=== PATIENT | male | born 1990 | race Caucasian/White ===

== ENCOUNTER 2016-07-19 15:45 | Emergency (ER) | payer OTHER ==
[2016-07-19 16:04] VITALS: BP 130/93; PULSE 88; TEMP 98.4; BMI 27.2
--- NOTE | 2016-07-19 16:25 | PDOC ---
History of Present Illness - General History Source: Patient Exam Limitations: No Limitations - History of Present Illness Initial Comments: 07/19/16 16:25 The patient is a 26 year old male , with no significant past medical history, who presents today with a laceration on his forehead. The patient states that the injury occurred last night at approximately 3:00am, 13 hours ago. The patient reports that he was helping a friend move when he accidentally knocked a box off of a high shelf onto his head. He reports using a wet washcloth to stop the bleeding. At this time, there is no active bleeding. The patient is unsure when his last tetanus shot was. No LOC, amnesia, nausea, vomiting. No double vision, blurred vision. No focal neurological complaints. Denies any other trauma. Allergies: Penicillins, cephalosporins. <Lakesha Dickerson - Last Filed: 07/19/16 17:09> <Aracelis Chu - Last Filed: 07/19/16 17:26> - General Chief Complaint: Injury Stated Complaint: LEFT FOREHEAD LACERATION Time Seen by Provider: 07/19/16 16:10 Past History <Lakesha Dickerson - Last Filed: 07/19/16 17:09> - Psycho/Social/Smoking Cessation Hx Anxiety: No Suicidal Ideation: No Smoking Status: Yes Smoking History: Former smoker Have you smoked in the past 12 months: Yes Number of Cigarettes Smoked Daily: 0 If you are a former smoker, when did you quit?: APR 2016 Information on smoking cessation initiated: Yes 'Breaking Loose' booklet given: 07/19/16 Hx Alcohol Use: No Drug/Substance Use Hx: No Substance Use Type: None <Aracelis Chu - Last Filed: 07/19/16 17:26> - Past Medical History Allergies/Adverse Reactions: Allergies Allergy/AdvReac Type Severity Reaction Status Date / Time Cephalosporins Allergy Verified 08/11/15 16:13 Penicillins Allergy Verified 08/11/15 16:13 Home Medications: Ambulatory Orders No Home Medications 0 dose .ROUTE UTDICT 03/13/12 Review of Systems - Review of Systems Able to Perform ROS?: Yes Comments:: 07/19/16 16:26 Remainder of the review of systems is negative - as per HPI <Lakesha Dickerson - Last Filed: 07/19/16 17:09> *Physical Exam - Vital Signs Last Vital Signs Temp Pulse Resp BP Pulse Ox 98.4 F 88 15 130/93 97 07/19/16 15:46 07/19/16 15:46 07/19/16 15:46 07/19/16 15:46 07/19/16 15:46 - Physical Exam Comments: 07/19/16 16:26 GENERAL: The patient is awake, alert, ambulatory, and answering questions, in no respiratory distress HEAD: No facial asymmetry. EYES: Normal LESLIE NEUROLOGICAL: Cranial nerves II through XII grossly intact. Normal speech, normal gait. Grossly nonfocal neurologic exam PSYCH: Normal mood, normal affect. SKIN: +3 to 4cm laceration on the forehead. Warm, Dry, normal turgor, no rashes noted. <Lakesha Dickerson - Last Filed: 07/19/16 17:09> - Vital Signs Last Vital Signs Temp Pulse Resp BP Pulse Ox 98.4 F 88 15 130/93 97 07/19/16 15:46 07/19/16 15:46 07/19/16 15:46 07/19/16 15:46 07/19/16 15:46 <Aracelis Chu - Last Filed: 07/19/16 17:26> Medical Decision Making - Medical Decision Making 07/19/16 16:59 13 hour old laceration-will cleansed thoroughly and irrigated thoroughly Laceration repair: The 3-4 cm left forehead laceration The skin was prepped with betadine. 1% lidocaine with sodium bicarbonate was injected subcutaneously for local anesthesia. Normal saline lavage, high pressure, high volume was performed. The wound was explored, no foreign body was seen in the wound The wound was again irrigated copiously The wound was closed with good approximation with 5 - 0 Ethilon, simple interrupted sutures, x 9 were placed. Bacitracin and a dry sterile dressing were applied. Patient was advised regarding signs and symptoms of infection as well as instructions for suture removal. Boostrix was administered <Aracelis Chu - Last Filed: 07/19/16 17:26> *DC/Admit/Observation/Transfer - Attestations Scribe Attestion: 07/19/16 16:27 Documentation prepared by EMILIA Byrd, acting as medical coordinator pesticide use for Aracelis Chu MD. <Lakesha Dickerson - Last Filed: 07/19/16 17:09> <Aracelis Chu - Last Filed: 07/19/16 17:26> Diagnosis at time of Disposition: Laceration of forehead - Discharge Dispostion Disposition: HOME Condition at time of disposition: Good - Patient Instructions Printed Discharge Instructions: DI for Closed Head Injury, DI for Laceration Repair, Laceration Repair Additional Instructions: Keep the wound clean, dry and dressing in place for 24-48 hours Then you may place fresh Neosporin and a fresh bandage to the wound twice a day Please return in 6-7 days for suture removal-you may return here for suture removal Observe closely for any signs of infection, which would be redness, swelling, drainage, increasing pain, or any other concerns you may have Tylenol or Motrin for discomfort Boostrix tetanus booster was administered today Followup with your primary care physician in 24-48 hours Return immediately if you worsen in any way - Post Discharge Activity Work/School Note: Back to Work
[2016-07-19] MEDS ORDERED: DIPHTH,PERTUSS(ACELL),TET 0.5 ML DISP.SYRIN IM ONE (17:00)
== END 2016-07-19 17:36 | disposition home or self-care (01) ==
LOC: FER 15:45
PROC: 0HQ1XZZ Repair Face Skin, External Approach (ICD-10-PCS; principal; 2016-07-19)
PROC: 3E0234Z Introduction of Serum, Toxoid and Vaccine into Muscle, Percutaneous Approach (ICD-10-PCS; 2016-07-19)
DX: S01.81XA Laceration without foreign body of other part of head, initial encounter (principal); W20.8XXA Other cause of strike by thrown, projected or falling object, initial encounter; Y93.89 Activity, other specified; Y92.9 Unspecified place or not applicable
CPT/HCPCS: 90715; 99282-25

== ENCOUNTER 2016-07-26 18:01 | Emergency (ER) | payer OTHER ==
--- NOTE | 2016-07-26 18:21 | PDOC ---
History of Present Illness - General Chief Complaint: Suture/Staple Removal(Here) Stated Complaint: SUTURE REMOVAL Time Seen by Provider: 07/26/16 18:03 History Source: Patient Exam Limitations: No Limitations - History of Present Illness Initial Comments: 07/26/16 18:18 CHIEF COMPLAINT: Wound check HISTORY OF PRESENT ILLNESS: Patient is 7 days status post laceration to the left forehead. He had sutures placed and he is here for a wound check. He denies any problems with the wound. There is no redness or discharge. There is no pain. He does sense slight numbness to the area. REVIEW OF SYSTEMS: No fever or chills No headache Past History - Past Medical History Allergies/Adverse Reactions: Allergies Allergy/AdvReac Type Severity Reaction Status Date / Time Cephalosporins Allergy Verified 07/26/16 18:06 Penicillins Allergy Verified 07/26/16 18:06 Home Medications: Ambulatory Orders No Home Medications 0 dose .ROUTE UTDICT 03/13/12 Other medical history: pt deneis - Psycho/Social/Smoking Cessation Hx Anxiety: No Suicidal Ideation: No Smoking Status: Yes Smoking History: Never smoked Have you smoked in the past 12 months: Yes Number of Cigarettes Smoked Daily: 0 If you are a former smoker, when did you quit?: APR 2016 Information on smoking cessation initiated: No 'Breaking Loose' booklet given: 07/19/16 Hx Alcohol Use: No Drug/Substance Use Hx: No Substance Use Type: None *Physical Exam - Vital Signs Last Vital Signs Temp Pulse Resp BP Pulse Ox 97.8 F 90 18 138/82 97 07/26/16 18:07 07/26/16 18:07 07/26/16 18:07 07/26/16 18:07 07/26/16 18:07 - Physical Exam Comments: 07/26/16 18:18 GENERAL: The patient is awake, alert, and fully oriented, in no acute distress. HEAD: Left forehead with sutures in place, wound is clean and dry, healing well , no erythema. EYES: Pupils equal, round and reactive to light, extraocular movements intact, sclera anicteric, conjunctiva clear. EXTREMITIES: Normal range of motion, no edema. NEUROLOGICAL: Normal speech, normal gait. PSYCH: Normal mood, normal affect. SKIN: Left forehead laceration healing well without signs of infection. Procedures - Additional Procedures Progress: 07/26/16 18:19 Suture removal: Wound was cleansed with alcohol skin prep. Sutures are removed Bacitracin applied Wound is closed and healing well without signs of infection Medical Decision Making - Medical Decision Making 07/26/16 18:19 Patient here for wound check, 7 days status post forehead laceration. On examination the wound is healing well without infection. Sutures all removed and bacitracin applied. *DC/Admit/Observation/Transfer Diagnosis at time of Disposition: Laceration of forehead Qualifiers: Encounter type: sequela Qualified Code(s): S01.81XS - Laceration without foreign body of other part of head, sequela - Discharge Dispostion Disposition: HOME Condition at time of disposition: Stable Admit: No - Patient Instructions Printed Discharge Instructions: DI for Suture Removal Additional Instructions: Your sutures were removed today. Your wound is healing well. Apply bacitracin ointment to the area, a very thin layer is sufficient, twice daily to keep the area moist until the skin has fully closed. When you go on your vacation, use sunblock when you are in the sun to protect the area. Follow-up as needed for any problems.
[2016-07-26 18:28] VITALS: BP 138/82; PULSE 90; TEMP 97.8; BMI 27.9
== END 2016-07-26 18:25 | disposition home or self-care (01) ==
LOC: FER 18:01
DX: Z48.02 Encounter for removal of sutures (principal)
CPT/HCPCS: 99282-25

== ENCOUNTER 2019-05-30 20:32 | Emergency (ER) | payer OTHER ==
[2019-05-30 20:39] VITALS: BP 151/102; PULSE 104; TEMP 98; BMI 30.1
[2019-05-30] MEDS ORDERED: DIPHTH,PERTUSS(ACELL),TET 0.5 ML DISP.SYRIN IM ONE ×2 (21:24→21:49)
[2019-05-30] MEDS ORDERED: SULFAMETHOXAZOLE/TRIMETHOPRIM 800MG/160MG D.S. TABLET PO ONE ×2 (22:00)
--- NOTE | 2019-05-30 22:02 | PDOC ---
Documentation entered by Celine Dewitt SCRIBE, acting as scribe for Magda Mancilla MD. Magda Mancilla MD: This documentation has been prepared by the yemiibe, Celine Dewitt SCRIBE, under my direction and personally reviewed by me in its entirety. I confirm that the documentation accurately reflects all work , treatment, procedures, and medical decision making performed by me. History of Present Illness - General Chief Complaint: Injury Stated Complaint: STUBBED LEFT GREAT TOE History Source: Patient Exam Limitations: No Limitations - History of Present Illness Initial Comments: 05/30/19 21:24 The patient is a 29-year-old male who presents to the emergency department with left toe bleeding s/p stubbing the toe on a coffee table around 3:00 pm. The patient reports he was playing with his kids when he stubbed the toe, and since then, it has been continuously bleeding. The patient reports he has put on 3 bandaged, which he has soaked through. PAST MEDICAL HISTORY: no significant history PAST SURGICAL HISTORY: no significant history FAMILY HISTORY: no pertinent history SOCIAL HISTORY: Pt lives with family and is employed. MEDICATIONS: reviewed ALLERGIES: As per nursing notes Review of system: General: No fevers or chills, no weakness, no weight loss HEENT: No change in vision. No sore throat,. No ear pain CardioVascular: No chest pain or shortness of breath Respiratory:No cough, or wheezing. Gastrointestinal: no nausea, vomiting, diarrhea or constipation, No rectal bleeding Genitourinary: No dysuria, hematuria, or frequency Musculoskeletal: +left great toe bleeding. No other joint or muscle pain or swelling Neurologic: No headache, vertigo, dizziness or loss of consciousness Psychiatric: nor depression Skin: No rashes or easy bruising Endocrine: no increased thirst or abnormal weight change Allergic: no skin or latex allergy All other systems reviewed and normal Physical exam: GENERAL: The patient is awake, alert, and fully oriented, in no acute distress. HEAD: Normal with no signs of trauma. EYES: Pupils equal, round and reactive to light, extraocular movements intact, sclera anicteric, conjunctiva clear. EXTREMITIES: +ecchymosis of the toe, with tenderness on palpation of the distal phalanx. There is 1cm laceration to the base of the toe, with mild venous oozing. Rest of the exam: Normal range of motion, no edema. NEUROLOGICAL: Normal speech, normal gait. PSYCH: Normal mood, normal affect. SKIN: Warm, Dry, normal turgor, no rashes or lesions noted. 05/30/19 22:06 This is a 29-year-old male who comes in with his for evaluation of a stump to left great toe. Patient came in because the toe will not stop bleeding. Patient does have a laceration along the base of the nail. In addition to that x-ray was done which does show a fracture along the base of the medial portion of the distal phalanx fracture is nondisplaced. Patient given Bactrim as it is uncertain as to whether or not this may be an open fracture Laceration was closed with Dermabond Patient's toe was mariah taped and patient discharged on Bactrim 1 tablet twice daily for 7 days Procedure note laceration repair Toe laceration was cleaned and closed with Dermabond patient tolerated well Past History - Past Medical History Allergies/Adverse Reactions: Allergies Allergy/AdvReac Type Severity Reaction Status Date / Time Cephalosporins Allergy Verified 05/30/19 20:34 Penicillins Allergy Verified 05/30/19 20:34 Home Medications: Ambulatory Orders No Home Medications 0 dose .ROUTE UTDICT 03/13/12 Sulfamethoxazole/Trimethoprim [Bactrim DS -] 1 tab PO BID #14 tablet 05/30/19 COPD: No - Psycho Social/Smoking Cessation Hx Smoking Status: Yes Smoking History: Never smoked Have you smoked in the past 12 months: No Number of Cigarettes Smoked Daily: 0 If you are a former smoker, when did you quit?: APR 2016 Information on smoking cessation initiated: No 'Breaking Loose' booklet given: 07/19/16 Hx Alcohol Use: Yes (SOCIAL) Drug/Substance Use Hx: No Substance Use Type: None *Physical Exam - Vital Signs Last Vital Signs Temp Pulse Resp BP Pulse Ox 98 F 104 H 16 151/102 H 98 05/30/19 20:34 05/30/19 20:34 05/30/19 20:34 05/30/19 20:34 05/30/19 20:34 ED Treatment Course - RADIOLOGY Radiology Studies Ordered: Category Date Time Status TOE(S) LEFT [RAD] Stat Radiology 05/30/19 21:13 Taken - Medications Given in the ED: ED Medications Discontinued Medications Generic Name Dose Route Start Last Admin Trade Name Carlton PRN Reason Stop Dose Admin Diphtheria/Tetanus/Acell Pertussis 0.5 ml 05/30/19 21:24 05/30/19 21:52 Boostrix - IM 05/30/19 21:25 0.5 ml ONCE ONE Administration Discharge - Discharge Information Problems reviewed: Yes Clinical Impression/Diagnosis: Fracture of left great toe Qualifiers: Encounter type: initial encounter Fracture type: open Phalanx: distal Fracture alignment: nondisplaced Qualified Code(s): S92.425B - Nondisplaced fracture of distal phalanx of left great toe, initial encounter for open fracture Laceration of left great toe Qualifiers: Encounter type: initial encounter Damage to nail status: with damage Foreign body presence: without foreign body Qualified Code(s): S91.212A - Laceration without foreign body of left great toe with damage to nail, initial encounter Condition: Stable Disposition: HOME - Admission No - Additional Discharge Information Prescriptions: Sulfamethoxazole/Trimethoprim [Bactrim DS -] 1 tab PO BID #14 tablet - Follow up/Referral - Patient Discharge Instructions Patient Printed Discharge Instructions: DI for Laceration Repair With Dermabond Additional Instructions: Do not use any petroleum-based products on the Dermabond as it will cause it to come off early. Keep the Dermabond dry for the next 72 hours. Tylenol or Motrin as needed for pain Since it is uncertain as to whether or not the laceration penetrates as far as the fracture I am giving you an antibiotic to make sure you do not develop an infection in case the laceration is deeper than it appears. Take Bactrim 1 tablet twice a day for 7 days Mariah tape the toe for additional support. Return to the emergency department immediately with ANY new, persistent or worsening symptoms. Continue any medications as previously prescribed by your physician. You should follow up with your primary doctor as soon as possible regarding today's emergency department visit. . Please make sure your doctor reviews the results of your emergency evaluation. Thank you for coming to the Emergency Department today for your care. It was a pleasure to see you today. Please note that your evaluation is INCOMPLETE until you follow-up with your doctor. - Post Discharge Activity
[2019-05-30] MEDS ORDERED: SULFAMETHOXAZOLE/TRIMETHOPRIM 800MG/160MG D.S. TABLET ONE (22:12)
== END 2019-05-30 22:20 | disposition home or self-care (01) ==
LOC: FER 20:32
PROC: 3E0234Z Introduction of Serum, Toxoid and Vaccine into Muscle, Percutaneous Approach (ICD-10-PCS; principal; 2019-05-30)
PROC: 2W3VXYZ Immobilization of Left Toe using Other Device (ICD-10-PCS; 2019-05-30)
DX: S92.425B Nondisplaced fracture of distal phalanx of left great toe, initial encounter for open fracture (principal); S91.212A Laceration without foreign body of left great toe with damage to nail, initial encounter; W22.01XA Walked into wall, initial encounter; Y93.89 Activity, other specified; Y92.89 Other specified places as the place of occurrence of the external cause; Z88.0 Allergy status to penicillin; Z88.8 Allergy status to other drugs, medicaments and biological substances
CPT/HCPCS: 73660-TC-LT-FY; 90715; 99281-25